=== PATIENT | male | born 1995 | race African-American/Black ===

== ENCOUNTER 2019-01-20 22:51 | Emergency (ER) | payer OTHER ==
[~2019-01-20] VITALS: Ht 175.3 cm; Wt 77.3 kg
[2019-01-20] MEDS ORDERED: ACETAMINOPHEN 500 MG TAB PO ONE (23:15)
[2019-01-21] MEDS ORDERED: IBUPROFEN 600 MG TAB PO ONE (01:45)
[2019-01-21 01:57] VITALS: BP 119/56
[2019-01-21 02:06] LABS: MONO SCRN NEGATIVE (NEGATIVE)
[2019-01-21] MEDS ORDERED: IBUP-1114 PO (13:33)
[2019-01-21] MEDS ORDERED: LIDO1SOL8 PO (16:33)
== END 2019-01-21 02:47 | disposition home or self-care (01) ==
LOC: M ED 22:51
DX: J02.9 Acute pharyngitis, unspecified (principal)

== ENCOUNTER 2019-01-21 13:25 | Emergency (ER) | payer OTHER ==
[~2019-01-21] VITALS: Ht 175.3 cm; Wt 77.3 kg
[2019-01-21] MEDS ORDERED: IBUP-1114 PO (13:33)
[2019-01-21] MEDS ORDERED: ACETAMINOPHEN 325 MG TAB PO ONE (13:45)
[2019-01-21 14:45] LABS: BASO % 0.3 % (0.0-1.0); EOS % 0.1 % (0.0-3.0); HEMATOCRIT 42.4 % (42.0-52.0); HEMOGLOBIN 13.9 g/dl (13.5-17.5); LYMPH # 0.8 10^3/uL (1.5-6.5); LYMPH % 7.8 % (24.0-44.0); MEAN CORPUSCULAR HEMOGLOBIN 27.1 pg (27.0-33.0); MEAN CORPUSCULAR HGB CONC 32.8 g/dl (32.0-36.5); MEAN CORPUSCULAR VOLUME 82.7 fl (80.0-96.0); MONO # 1.2 10^3/uL (0.0-0.8); MONO % 11.1 % (0.0-5.0); NEUTROPHILS # 8.3 10^3/uL (1.8-7.7); NEUTROPHILS % 80.4 % (36.0-66.0); PLATELET COUNT, AUTOMATED 180 10^3/uL (150-450); RED BLOOD COUNT 5.13 10^6/uL (4.30-6.10); WHITE BLOOD COUNT 10.3 10^3/uL (4.0-10.0)
[2019-01-21] MEDS ORDERED: dexameTHASONE 20 MG/5 ML VIAL (J1100) IV ONE (14:45)
[2019-01-21] MEDS ORDERED: NS 1,000 ML IV ONE (14:45)
[2019-01-21] MEDS ORDERED: LIDOCAINE VISCOUS 2% SOLN 15ML UDC SS ONE (14:45)
[2019-01-21 15:06] LABS: ERYTHROCYTE SEDIMENTATION RATE 10 mm/hr (0-15)
[2019-01-21 15:08] LABS: BLOOD UREA NITROGEN 13 MG/DL (7-18); C REACTIVE PROTEIN QUANTITATIV 2.26 MG/DL (0.00-0.30); CALCIUM LEVEL 8.2 MG/DL (8.5-10.1); CARBON DIOXIDE LEVEL 29 MEQ/L (21-32); CHLORIDE LEVEL 103 MEQ/L (98-107); CREATININE FOR GFR 0.99 MG/DL (0.70-1.30); GLOMERULAR FILTRATION RATE > 60.0 (>60); GLUCOSE, FASTING 92 MG/DL (70-100); SODIUM LEVEL 135 MEQ/L (136-145)
[2019-01-21 15:12] LABS: MONO REFLEX EBV COMP NEGATIVE (NEGATIVE)
[2019-01-21 15:54] VITALS: BP 108/50
[2019-01-21] MEDS ORDERED: LIDO1SOL8 PO (16:33)
[2019-01-25 00:06] LABS: EBV AB TO NUCLEAR ANTIGEN >600.0 U/mL (0.0-17.9); EBV VIRAL CAPSID AG IgG 75.9 U/mL (0.0-17.9); EBV VIRAL CAPSID AG IgM <36.0 U/mL (0.0-35.9)
== END 2019-01-21 16:43 | disposition home or self-care (01) ==
LOC: M ED 13:25
DX: J02.9 Acute pharyngitis, unspecified (principal)
CPT/HCPCS: 80048; 83605; 85025; 85652; 86140; 86308; 86663; 86664; 86665; 87880; 96374; 99284; J1100